=== PATIENT | male | born 1940 | race Caucasian/White ===

== ENCOUNTER 2016-12-13 10:14 | Day surgery (SDC) | payer MEDICARE ==
--- NOTE | 2016-12-13 09:38 | HP ---
DATE OF SURGERY: 12/13/2016 HISTORY OF PRESENT ILLNESS: The patient is a 76 year-old gentleman who recently underwent colonoscopy for change in bowel habits and lower abdominal pain. He was noted to have rectal cancer. He is need of Port-A-Cath for neoadjuvant treatment. PAST MEDICAL HISTORY: In addition to rectal cancer he has got chronic obstructive pulmonary disease. PAST SURGICAL HISTORY: Back surgery in the past. He had colonoscopy in the past. MEDICATIONS: Albuterol, aspirin. ALLERGIES: NKDA. FAMILY HISTORY: Negative for colon cancer. SOCIAL HISTORY: One pack per day smoker, denies alcohol abuse. REVIEW OF SYSTEMS: Twelve systems reviewed per admission assessment. No chest pain or palpitations other systems negative or noncontributory as above and per preadmission questionnaire. PHYSICAL EXAMINATION: GENERAL: No acute distress. HEENT: Sclerae nonicteric. NECK: No JVD. CHEST: Equal excursion, nonlabored breathing. CVS: Regular rate and rhythm. ABDOMEN: Soft. No peritoneal signs. EXTREMITIES: No significant edema. NEURO: Alert, moving extremities symmetrically. No gross motor deficits noted. IMPRESSION: Rectal cancer in need of neoadjuvant treatment. He has seen Dr. Majano and Dr. Vazquez. He is in need of Port-A-Cath placement for IV treatments for his rectal cancer prior to setting him up for resection. Risks and benefits explained in detail including but not limited to bleeding or infection, risk of hematoma or seroma formation, risk of port or catheter fracture or failure possibly requiring removal or replacement, risk of port infection possibly requiring removal, risk of pneumothorax or thrombosis, general risk of aches, pain, hematoma or seroma formation, general risk of anesthesia or sedation. He understands all the above but not limited to, will proceed with Port-A-Cath placement as an outpatient.
[~2016-12-13 10:14] MED LIST: CEFAZOLIN 2 GM-D5W BAG** 2 GM/50 ML ML IV ONE; CEFAZOLIN 2 GM-D5W BAG** 2 GM/50 ML ML IV SCH; Lactated Ringers 1,000 ML IV ONE; Lactated Ringers 1,000 ML IV SCH; Sensorcaine 0.25% 10 ML ONE; Sodium Chloride 0.9% 10 ML FLUSH Syringe IV PRN; XYLOCAINE 1% HCL 20 ML MDV ONE
[2016-12-13] MEDS ORDERED: Ketamine HCl 50 MG/ML IJ ONE (10:15)
[2016-12-13] MEDS ORDERED: DIPRIVAN 200 MG/20 ML IV ONE (10:15)
[2016-12-13 13:43] VITALS: BP 135/73
--- NOTE | 2016-12-13 13:50 | XRAY ---
Indication: Port placement. Intraoperative fluoroscopy was provided for 5 seconds. A single digital spot image submitted for interpretation demonstrates partially visualized left-sided Port-A-Cath. Correlate with intraoperative findings/report.
[2016-12-13 14:14] VITALS: PULSE 53; O2SAT 93
--- NOTE | 2016-12-14 08:45 | OP ---
SURGERY DATE/TIME: 12/13/2016 1237 PREOPERATIVE DIAGNOSIS: Rectal cancer in need of long term care pharmacist IV access for IV treatments for neoadjuvant therapy. POSTOPERATIVE DIAGNOSIS: Rectal cancer in need of [facility] IV access for IV treatments for neoadjuvant therapy. PROCEDURE: Tunnel Port-A-Cath placement with C-arm fluoroscopy left subclavian vein. SURGEON: Dr. Jayesh Carias. GOLD CHARMER: Dr. Lois Berrios. ANESTHESIA: MAC. ESTIMATED BLOOD LOSS: Minimal. INDICATIONS: As noted above. Risks and benefits explained in detail and not limited to and consent obtained. DESCRIPTION OF PROCEDURE AND FINDINGS: The patient is taken to the operating room. MAC anesthesia introduced., The neck and chest prepped and draped in usual sterile fashion. After official time out and no disagreement with planned procedure, 1% lidocaine was infiltrated. 18 gauge cannulation inserted. On first pass good dark nonpulsatile venous return. The guidewire passed without difficulty followed by dilator, followed by anesthetized tunnel track and port pocket area. Guidewire is confirmed down the superior vena cava on C-arm fluoroscopy this was followed by anesthetizing the tunnel track and port pocket. The catheter tunneled down from cannulation stab wound to port pocket area. The dilator break away sheath easily fed over the guidewire. Catheter fed down the breakaway sheath. The tip was pulled back in distal superior vena cava. Lung macdonald were noted to be up bilaterally. It was felt that no further x-rays were necessary. The catheter was cut to appropriate length, snapped on the port with the hub. The port aspirated dark nonpulsatile venous return with ease. Flushed with heparinized saline with ease. Good hemostasis noted. Subcu closed with 3-0 Vicryl, skin closed with 4-0 Vicryl, cannulation stab wound closed with 4-0 Vicryl, Steri-Strips and sterile dressings applied. 0.25% Marcaine local injected along the skin incision fascial defect at the beginning of the procedure. Again, the catheter tip is in good location in the distal superior vena cava. Lung macdonald noted to be up bilaterally. It was felt that no further x-rays were necessary. The patient tolerated the procedure well. Findings discussed with the family out in the waiting area.
== END 2016-12-13 14:20 | disposition home or self-care (01) ==
LOC: SDC 10:14
PROVIDERS: ATTEND Surgery
PROC: 05H633Z Insertion of Infusion Device into Left Subclavian Vein, Percutaneous Approach (ICD-10-PCS; principal; 2016-12-13)
DX: C20 Malignant neoplasm of rectum (principal)
CPT/HCPCS: 00532; 77001; 99100; C1788; J0690; J1642; J2704

== ENCOUNTER 2018-03-13 08:53 | Day surgery (SDC) | payer MEDICARE ==
[2018-03-13] MEDS ORDERED: DIPRIVAN 200 MG/20 ML IV ONE (08:54)
[2018-03-13] MEDS ORDERED: Ketamine HCl 50 MG/ML IJ ONE (08:54)
[2018-03-13] MEDS ORDERED: Lactated Ringers 1,000 ML IV SCH (09:00)
--- NOTE | 2018-03-13 09:05 | HP ---
DATE OF SURGERY: 03/13/2018 HISTORY OF PRESENT ILLNESS: The patient is a 77 year-old with no bloody stools, family history negative for colon cancer. He has a past history of rectal cancer in need of follow up colonoscopy. Some gas, aches or pain in the right lower quadrant at times. PAST MEDICAL HISTORY: Chronic obstructive pulmonary disease. PAST SURGICAL HISTORY: Laparoscopic assisted partial colectomy and reanastomosis in the past. MEDICATIONS: None on a regular basis. ALLERGIES: NKDA. FAMILY HISTORY: Cancer. SOCIAL HISTORY: One pack per day smoker. Denies alcohol abuse. REVIEW OF SYSTEMS: Twelve systems reviewed. Negative or noncontributory as above and per preadmission questionnaire. PHYSICAL EXAMINATION: GENERAL: No acute distress. HEENT: Sclerae nonicteric. NECK: No JVD. CHEST: Equal excursion, decreased breath sounds consistent with chronic obstructive pulmonary disease but no audible wheeze. CVS: Regular rate and rhythm. ABDOMEN: Soft. No peritoneal signs. EXTREMITIES: No significant edema. NEURO: Alert, oriented, moving extremities symmetrically. No gross motor deficits noted. RECTAL: Deferred timed to endoscopy exam. IMPRESSION: History of rectal cancer. He is in need of follow up colonoscopy. I feel the patient is a candidate. A year ago he had resection. I feel the patient is a candidate for colonoscopy. Risks and benefits explained in detail including but not limited to bleeding or infection, small risk of bowel injury or perforation possibly requiring open procedure, risk of missed or nondiagnosis or incomplete exam possibly requiring barium enema, other studies or procedures, general risk of anesthesia or sedation but not limited to. He understands and agrees to the planned procedure and will proceed with outpatient follow up screening colonoscopy.
[2018-03-13] MEDS ORDERED: Lactated Ringers 1,000 ML IV ONE (09:54)
[2018-03-13] MEDS: Sodium Chloride 0.9% 10 ML FLUSH Syringe PORT FLUSH PRN ×2 (10:14→11:56)
[2018-03-13 11:50] VITALS: PULSE 50
[2018-03-13 11:55] VITALS: BP 127/61; O2SAT 95
--- NOTE | 2018-03-13 15:52 | OP ---
SURGERY DATE/TIME: 03/13/2018 1035 PREOPERATIVE DIAGNOSIS: Rectal cancer in need of follow up colonoscopy. POSTOPERATIVE DIAGNOSES: 1) Limited bowel prep, adequate but limiting, small internal and external hemorrhoids. 2) Diverticulosis. 3) Patent anastomosis. No evidence of recurrence at anastomotic site. PROCEDURES: Colonoscopy to cecum. SURGEON: Dr. Jayesh Carias. ANESTHESIA: MAC. ESTIMATED BLOOD LOSS: Minimal. INDICATIONS: As noted above. Risks and benefits explained in detail but not limited to and consent obtained. DESCRIPTION OF PROCEDURE AND FINDINGS: The patient is taken to the endoscopy room. MAC anesthesia induced. After official time out and no disagreement with planned procedure, digital rectal exam did not reveal any rectal masses. He did have some small internal and external hemorrhoids. Video colonoscope inserted and passed up through the patent anastomotic site. No signs of any recurrence at this time. The scope was slowly and carefully navigated up through the left colon down the transverse colon around the ascending colon, cecum up to the very tip of the distal ileum which was grossly unremarkable. Appendiceal orifice and valve visualized. Prep overall was limited. There was some semi-solid liquidy stool and a few solid stool chunks too thick to go through the scope, overall adequate prep. I do not feel that there was any large polyps, masses or obstructing lesions that were missed but tiny or small lesions may not have been visualized. On slow careful withdrawal of the scope back through the anastomotic site, he had some diverticulosis. He had small internal and external hemorrhoids. The scope is withdrawn. The patient tolerated the procedure well. Finding discussed with the family out in the waiting area. Given his stool laden prep although there is no evidence of any large polyps, masses or obstructing lesions and the anastomotic site looked excellent it is felt that he likely would benefit from follow up colonoscopy in one year given his history of colorectal cancer.
== END 2018-03-13 12:05 | disposition home or self-care (01) ==
LOC: SDC 08:53
PROVIDERS: ATTEND Surgery
DX: Z85.048 Personal history of other malignant neoplasm of rectum, rectosigmoid junction, and anus (principal); K57.90 Diverticulosis of intestine, part unspecified, without perforation or abscess without bleeding; K64.4 Residual hemorrhoidal skin tags; K64.8 Other hemorrhoids
CPT/HCPCS: 93005; 94250; 99100; J1642; J2704

== ENCOUNTER 2020-01-21 10:13 | Day surgery (SDC) | payer MEDICARE ==
--- NOTE | 2019-12-31 08:21 | HP ---
DATE OF SURGERY: 12/31/2019 HISTORY OF PRESENT ILLNESS: The patient is a 79 year old in need of removal of port. He is not using it anymore. He desires removal and oncologist gave the okay. PAST MEDICAL HISTORY: Chronic obstructive pulmonary disease. Colon cancer in the past. Lung disease. Colorectal cancer. PAST SURGICAL HISTORY: Laparoscopic assisted partial colectomy and reanastomosis in the past. He had Port-A-Cath placed in the past. He had endoscopy in the past. MEDICATIONS: ProAir, Ventolin, acetaminophen. ALLERGIES: NKDA. FAMILY HISTORY: Cancer. SOCIAL HISTORY: One pack per day smoker. Denies alcohol abuse. REVIEW OF SYSTEMS: Fourteen systems reviewed. No chest pain or palpitations. Other systems negative or noncontributory as above and per preadmission questionnaire. PHYSICAL EXAMINATION: GENERAL: No acute distress. HEENT: Sclerae nonicteric. NECK: No JVD. CHEST: Equal excursion, decreased breath sounds bilaterally. CVS: Regular rate and rhythm. ABDOMEN: Soft. EXTREMITIES: No edema. NEURO: Alert, moving extremities grossly symmetrically. PSYCH: Appropriate mood and affect. IMPRESSION: The patient has history of colorectal cancer. No longer uses the port and desires removal. I feel he is a candidate. He prefers to have removal, will with proceed under IV sedation as an outpatient. General risk of bleeding or infection, risk of hematoma or seroma formation, remote risk that the catheter could be scarred in too much for removal and may just have to tie off the catheter and remove the port. He understands and agrees to the planned procedure, will proceed with outpatient removal of Port-A-Cath.
--- NOTE | 2020-01-21 08:07 | HP ---
DATE OF SURGERY: 01/21/2020 HISTORY OF PRESENT ILLNESS: The patient is a 79 year old who is done with his port, no longer using and desires removal at this time. He has prior history of laparoscopic-assisted low anterior resection for colon cancer. PAST MEDICAL HISTORY: Chronic obstructive pulmonary disease and on home O2. PAST SURGICAL HISTORY: Colon resection in the past. He had a port. He had endoscopy in the past. MEDICATIONS: None on a regular basis. He is on home O2. ALLERGIES: NKDA. FAMILY HISTORY: Cancer. SOCIAL HISTORY: One pack per day smoker. Denies alcohol abuse. REVIEW OF SYSTEMS: Fourteen systems reviewed. Negative or noncontributory as above and per preadmission questionnaire. PHYSICAL EXAMINATION: GENERAL: A chronically ill gentleman on home O2. HEENT: Sclerae nonicteric. NECK: No JVD. CHEST: Port site fine. Equal excursion, decreased breath sounds consistent with chronic obstructive pulmonary disease. CVS: Regular rate and rhythm. ABDOMEN: Soft, nondistended. EXTREMITIES: No cyanosis. NEURO: Alert, moving extremities symmetrically. IMPRESSION: History of colon cancer. No longer needing his port. I feel he is a candidate for removal. General risk of bleeding or infection, small risk of sedation, risk of hematoma or seroma formation, remote risk of the catheter being scarred in there and having to remove just the port itself and tying off the catheter. General risk of aches and pains but not limited to. Risk of infection possibly requiring packing, will proceed with Port-A-Cath removal under IV sedation as an outpatient.
[2020-01-21] MEDS ORDERED: SUBLIMAZE 100 MCG/2 ML IV ONE (10:14)
[2020-01-21] MEDS ORDERED: VERSED 5 MG/5 ML IV ONE (10:14)
[2020-01-21] MEDS ORDERED: Lactated Ringers 1,000 ML IV ONE (10:27)
[2020-01-21] MEDS ORDERED: XYLOCAINE 1% HCL 20 ML MDV ONE (10:27)
[2020-01-21] MEDS ORDERED: Lactated Ringers 1,000 ML IV SCH (10:30)
[2020-01-21 13:07] VITALS: PULSE 58
[2020-01-21 13:16] VITALS: O2SAT 95
[2020-01-21 13:35] VITALS: BP 131/67
--- NOTE | 2020-01-22 09:17 | OP ---
SURGERY DATE/TIME: 01/21/2020 1225 PREOPERATIVE DIAGNOSIS: Prior history of cancer, now done with chemotherapy and no desires his Port-A-Cath and desires for removal. POSTOPERATIVE DIAGNOSIS: Prior history of cancer, now done with chemotherapy and no desires his Port-A-Cath and desires for removal. PROCEDURES: 1) Removal of tunnel Port-A-Cath. 2) 15 minutes of surgery monitored and managed IV conscious sedation. SURGEON: Dr. Jayesh Carias. ANESTHESIA: IV conscious sedation, IV Fentanyl 50 mg, IV Versed 1 mg, 1% lidocaine. ESTIMATED BLOOD LOSS: Minimal. INDICATIONS: As noted above. Risks and benefits explained in detail and not limited to and consent obtained. DESCRIPTION OF PROCEDURE AND FINDINGS: The patient is taken to the operating room. Continuous pulse oximetry with blood pressure monitoring. He was incrementally sedated with IV Fentanyl and Versed, given a little bit additional Fentanyl. He remained hemodynamically stable. He is in more comfortable state. His chest is prepped and draped in usual sterile fashion. After official time out and no disagreement with planned procedure, 1% lidocaine local infiltrated in field pattern around the port itself. Dissection carried down through the skin. The two Prolene sutures carefully removed. The port is mobilized upwards. The catheter pulled free intact and passed off. Tunnel track closed with 3-0 Vicryl. Fibrous pocket closed with 3-0 Vicryl. Skin closed with 4-0 Vicryl. Steri-Strips and sterile dressing applied. The patient tolerated the procedure well. There were no immediate complications. Findings discussed with the family out in the waiting area.
== END 2020-01-21 13:35 | disposition home or self-care (01) ==
LOC: SDC 10:13
PROVIDERS: ATTEND Surgery
DX: Z45.2 Encounter for adjustment and management of vascular access device (principal); J44.9 Chronic obstructive pulmonary disease, unspecified; Z85.038 Personal history of other malignant neoplasm of large intestine; Z79.899 Other long term (current) drug therapy
CPT/HCPCS: J2250; J3010

== ENCOUNTER 2020-10-29 20:47 | Emergency (ER) | payer MEDICARE ==
[2020-10-29 20:58] LABS: A-aADO2 85; ABG HEMOGLOBIN 14.8; ABG POTASSIUM 4.1 (3.5-5.1); ABG SITE LEFT RADIAL; ALLEN TEST OK? YES; ARTERIAL BLD GAS O2 SATURATION 95.2 % (95-100); ARTERIAL BLOOD GAS BASE EXCESS 3.8 (-2.0-2.0); ARTERIAL BLOOD GAS FIO2 32 %; ARTERIAL BLOOD GAS PCO2 56 mmHg (35-45); ARTERIAL BLOOD GAS PO2 73 mmHg (75-100); ARTERIAL BLOOD GAS pH 7.35 (7.35-7.45); CARBOXYHEMOGLOBIN 3.6 % THgb (0.0-6.9); HCO3- 30.9 (22-28); HGB O2 SAT 90.7 g/dF (94-100); Methhemoglobin 1.1 % (1.4-1.5)
[2020-10-29] MEDS ORDERED: DUONEB 0.5-3 MG/3 ml Neb IH ONE (21:00)
--- NOTE | 2020-10-29 21:06 | ERPHSYRPT ---
- History of Present Illness Time Seen by Provider: 10/29/20 21:02 Source: patient, family Exam Limitations: clinical condition Physician History: This is a 80-year-old white male who continues to smoke even though he has end- stage COPD. He denies chest pain. He denies fever. He denies abdominal pain. He denies nausea vomiting diarrhea. He has had worsening shortness of breath over the last 2 days. Patient has been diagnosed with colorectal cancer. Patient wears home oxygen of 3 L of oxygen nasal cannula Timing/Duration: day(s) (2) Activities at Onset: none Severity of Dyspnea-Max: moderate Severity of Dyspnea-Current: moderate Possible Cause: frequent episodes, smoke exposure Modifying Factors: Improves With: activity, coughing, exertion Associated Symptoms: cough, No chest pain/discomfort Allergies/Adverse Reactions: adhesive tape Adverse Reaction (Severe, Verified 01/21/20 10:32) Blisters Home Medications: Albuterol 8 gm Mdi Hfa [Ventolin Hfa MDI] 2 puffs IH DAILY 03/07/18 [History] Acetaminophen 500 mg [Tylenol Extra Strength 500 mg] 1 tab PO Q4-6HPRN PRN 03/13/18 [History] Albuterol Sulfate [Proair Hfa] 8.5 gm IH Q6HPRN PRN 12/17/19 [History] Travel Risk - International Travel Have you traveled outside of the country in past 3 weeks: No - Coronavirus Screening Are you exhibiting any of the following symptoms?: Yes Symptoms: Shortness of Breath Close contact with a COVID-19 positive Pt in past 14-21 Days: No - Review of Systems Constitutional: No Symptoms, Night Sweats Eyes: No Symptoms Ears, Nose, & Throat: No Symptoms Respiratory: Cough, Dyspnea, Wheezing Cardiac: No Symptoms Abdominal/Gastrointestinal: No Symptoms Genitourinary Symptoms: No Symptoms Musculoskeletal: No Symptoms Skin: No Symptoms Neurological: No Symptoms Psychological: No Symptoms Endocrine: No Symptoms Hematologic/Lymphatic: No Symptoms Immunological/Allergic: No Symptoms All Other Systems: Reviewed and Negative - Past Medical History Pertinent Past Medical History: No Neurological History: No Pertinent History ENT History: No Pertinent History Cardiac History: No Pertinent History Respiratory History: Asthma, COPD Endocrine Medical History: No Pertinent History Musculoskeletal History: No Pertinent History GI Medical History: Colorectal Cancer History: No Pertinent History Psycho-Social History: No Pertinent History Male Reproductive Disorders: No Pertinent History - Past Surgical History Past Surgical History: Yes Neuro Surgical History: No Pertinent History Cardiac: No Pertinent History Respiratory: No Pertinent History Gastrointestinal: Colon Resection Genitourinary: No Pertinent History Musculoskeletal: Orthopedic Surgery Male Surgical History: No Pertinent History Other Surgical History: back surgery x 2 - Social History Smoking Status: Current every day smoker How long have you smoked: 60 Exposure to second hand smoke: Yes Drug Use: none - Nursing Vital Signs Nursing Vital Signs: Initial Vital Signs Temperature 97.2 F 10/29/20 21:01 Pulse Rate 102 H 10/29/20 21:01 Respiratory Rate 25 H 10/29/20 21:01 Blood Pressure 186/86 10/29/20 21:01 O2 Sat by Pulse Oximetry 84 L 10/29/20 21:01 Pain Scale Pain Intensity 0 - Physical Exam General Appearance: moderate distress, alert, anxiety Eye Exam: PERRL/EOMI, eyes nml inspection Ears, Nose, Throat Exam: hearing grossly normal, normal ENT inspection, normal pharynx Neck Exam: normal inspection, non-tender, supple, full range of motion Respiratory Exam: respiratory distress, airway intact, wheezing, No chest tenderness Cardiovascular/Chest Exam: normal heart sounds, regular rate/rhythm, normal peripheral pulses Abdominal/Gastrointestinal Exam: soft, normal bowel sounds, No tenderness Extremity Exam: non-tender, normal range of motion, normal inspection, normal capillary refill, no calf tenderness, no pedal edema, pelvis stable Neurologic Exam: alert, oriented x 3, cooperative, unemployment specialist II-XII nml as tested, normal mood/affect, nml cerebellar function, nml station & gait, sensation nml Skin Exam: normal color, warm, dry Lymphatic Exam: No adenopathy SpO2 Interpretation: hypoxic O2 Delivery: Nasal Cannula - Course Nursing assessment & vital signs reviewed: Yes EKG Interpreted by Me: RATE (89), Sinus Rhythm, Right [place] Deviation, NORMAL INTERVALS, NORMAL QRS, NORMAL ST-T, Other (No acute ischemic changes on this EKG. Patient extremely anxious and hyperventilating.) Ordered Tests: Active Orders 24 hr Category Date Time Status EKG-ER Only STAT Care 10/29/20 20:54 Active IV Insertion STAT Care 10/29/20 20:54 Active Pulse Oximetry (ED) STAT Care 10/29/20 20:54 Active CHEST 1 VIEW (PORTABLE) Stat Exams 10/29/20 20:55 Taken ABG [ARTERIAL BLOOD GASES] Stat Lab 10/29/20 20:55 Completed BLOOD CULTURE Stat Lab 10/29/20 21:20 Received CBC W DIFF Stat Lab 10/29/20 21:00 Completed CMP Stat Lab 10/29/20 21:00 Completed D-DIMER QUANTITATIVE Stat Lab 10/29/20 21:00 Completed Lactic Acid Stat Lab 10/29/20 21:24 Completed Manual Differential NC Stat Lab 10/29/20 21:00 Completed NT PRO BNP Stat Lab 10/29/20 21:00 Completed PROTIME WITH INR Stat Lab 10/29/20 21:00 Completed TROPONIN Q3H Lab 10/29/20 21:00 Completed TROPONIN Q3H Lab 10/30/20 00:00 Ordered TROPONIN Q3H Lab 10/30/20 03:00 Ordered TROPONIN Q3H Lab 10/30/20 06:00 Ordered TROPONIN Q3H Lab 10/30/20 09:00 Ordered Respiratory Therapy Assessment DAILY RT 10/29/20 21:45 Active Medication Summary Discontinued Medications Generic Name Dose Route Start Last Admin Trade Name Freq PRN Reason Stop Dose Admin Albuterol Sulfate Confirm 10/29/20 21:07 Proventil Solution 2.5 Mg/0.5 Ml Administered 10/29/20 21:08 Dose 2.5 mg IH .STK-MED ONE Albuterol Sulfate 2.5 mg 10/29/20 21:43 10/29/20 21:20 Proventil Solution 2.5 Mg/0.5 Ml IH 10/29/20 21:44 2.5 mg STAT ONE Administration Albuterol/Ipratropium Confirm 10/29/20 21:00 Duoneb 0.5-3 Mg/3 Ml Neb Administered 10/29/20 21:01 Dose 3 ml IH .STK-MED ONE Albuterol/Ipratropium 3 ml 10/29/20 21:43 10/29/20 21:10 Duoneb 0.5-3 Mg/3 Ml Neb IH 10/29/20 21:44 3 ml STAT ONE Administration Methylprednisolone Sodium 0 mg 10/29/20 20:54 10/29/20 21:52 Succinate 125 mg/ Sterile IV 10/29/20 20:55 2 mg Water 2 ml STAT ONE Administration Lorazepam 1 mg 10/29/20 21:12 10/29/20 21:25 Ativan 2 Mg/1 Ml Vial IV 10/29/20 21:13 1 mg STAT ONE Administration Lorazepam Confirm 10/29/20 21:22 Ativan 2 Mg/1 Ml Vial Administered 10/29/20 21:23 Dose 2 mg .ROUTE .STK-MED ONE Methylprednisolone Sodium Succinate Confirm 10/29/20 21:49 Solu-Medrol Administered 10/29/20 21:50 Dose 125 mg .ROUTE .STK-MED ONE Lab/Rad Data: Laboratory Result Diagrams 10/29/20 21:00 10/29/20 21:00 Laboratory Results 10/29/20 10/29/20 10/29/20 Range/Units 22:50 21:24 21:00 WBC (4.0-10.5) K/mm3 RBC (4.1-5.6) M/mm3 Hgb (12.5-18.0) gm/dl Hct (42-50) % MCV (78-100) fl MCH (26-32) pg MCHC (32-36) g/dl RDW (11.5-14.0) % Plt Count (150-450) K/mm3 MPV (7.5-11.0) fl PT (9.4-12.5) SECONDS INR (0.8-3.0) D-Dimer (215-500) ng/mL Puncture Site pCO2 (35-45) mmHg pO2 (75-100) mmHg Base Excess (-2.0-2.0) O2 Saturation (94-100) g/dF ABG pH (7.35-7.45) ABG HCO3 (22-28) ABG O2 Sat (Measured) (95-100) % Luiz Test A-a Gradient a/A Ratio Hemoglobin Carboxyhemoglobin (0.0-6.9) % THgb Methemoglobin (1.4-1.5) % Potassium (3.5-5.1) Temperature C POC O2 Flow Rate % Sodium (137-145) mmol/L Chloride (98-107) mmol/L Carbon Dioxide (22-30) mmol/L Anion Gap (5-15) MEQ/L BUN (9-20) mg/dL Creatinine (0.66-1.25) mg/dL Estimated GFR ML/MIN Glucose (74-106) mg/dL Lactic Acid 1.4 (0.4-2.0) Calcium (8.4-10.2) mg/dL Total Bilirubin (0.2-1.3) mg/dL AST (17-59) U/L ALT (0-50) U/L Alkaline Phosphatase (38-126) U/L Troponin I < 0.012 (0.000-0.034) ng/mL NT-Pro-B Natriuret Pep (0-1800) pg/mL Serum Total Protein (6.3-8.2) g/dL Albumin (3.5-5.0) g/dL SARS-CoV-2 (PCR) NEGATIVE (NEGATIVE) 10/29/20 10/29/20 10/29/20 Range/Units 21:00 21:00 21:00 WBC 16.7 H (4.0-10.5) K/mm3 RBC 4.58 (4.1-5.6) M/mm3 Hgb 14.8 (12.5-18.0) gm/dl Hct 44.4 (42-50) % MCV 96.9 (78-100) fl MCH 32.3 H (26-32) pg MCHC 33.3 (32-36) g/dl RDW 14.9 H (11.5-14.0) % Plt Count 297 (150-450) K/mm3 MPV 10.9 (7.5-11.0) fl PT 12.6 H (9.4-12.5) SECONDS INR 1.07 (0.8-3.0) D-Dimer 321 (215-500) ng/mL Puncture Site pCO2 (35-45) mmHg pO2 (75-100) mmHg Base Excess (-2.0-2.0) O2 Saturation (94-100) g/dF ABG pH (7.35-7.45) ABG HCO3 (22-28) ABG O2 Sat (Measured) (95-100) % Luiz Test A-a Gradient a/A Ratio Hemoglobin Carboxyhemoglobin (0.0-6.9) % THgb Methemoglobin (1.4-1.5) % Potassium 4.2 (3.5-5.1) Temperature C POC O2 Flow Rate % Sodium 138 (137-145) mmol/L Chloride 98 (98-107) mmol/L Carbon Dioxide 29 (22-30) mmol/L Anion Gap 15.6 H (5-15) MEQ/L BUN 24 H (9-20) mg/dL Creatinine 0.67 (0.66-1.25) mg/dL Estimated GFR > 60.0 ML/MIN Glucose 146 H (74-106) mg/dL Lactic Acid (0.4-2.0) Calcium 9.5 (8.4-10.2) mg/dL Total Bilirubin 0.60 (0.2-1.3) mg/dL AST 29 (17-59) U/L ALT 23 (0-50) U/L Alkaline Phosphatase 102 (38-126) U/L Troponin I (0.000-0.034) ng/mL NT-Pro-B Natriuret Pep 183 (0-1800) pg/mL Serum Total Protein 7.9 (6.3-8.2) g/dL Albumin 4.5 (3.5-5.0) g/dL SARS-CoV-2 (PCR) (NEGATIVE) 10/29/20 Range/Units 20:55 WBC (4.0-10.5) K/mm3 RBC (4.1-5.6) M/mm3 Hgb (12.5-18.0) gm/dl Hct (42-50) % MCV (78-100) fl MCH (26-32) pg MCHC (32-36) g/dl RDW (11.5-14.0) % Plt Count (150-450) K/mm3 MPV (7.5-11.0) fl PT (9.4-12.5) SECONDS INR (0.8-3.0) D-Dimer (215-500) ng/mL Puncture Site LEFT RADIAL pCO2 56 H (35-45) mmHg pO2 73 L (75-100) mmHg Base Excess 3.8 H (-2.0-2.0) O2 Saturation 90.7 L (94-100) g/dF ABG pH 7.35 (7.35-7.45) ABG HCO3 30.9 H* (22-28) ABG O2 Sat (Measured) 95.2 (95-100) % Luiz Test YES A-a Gradient 85 a/A Ratio 0.46 Hemoglobin 14.8 Carboxyhemoglobin 3.6 (0.0-6.9) % THgb Methemoglobin 1.1 L (1.4-1.5) % Potassium 4.1 (3.5-5.1) Temperature 37.0 C POC O2 Flow Rate 32 % Sodium (137-145) mmol/L Chloride (98-107) mmol/L Carbon Dioxide (22-30) mmol/L Anion Gap (5-15) MEQ/L BUN (9-20) mg/dL Creatinine (0.66-1.25) mg/dL Estimated GFR ML/MIN Glucose (74-106) mg/dL Lactic Acid (0.4-2.0) Calcium (8.4-10.2) mg/dL Total Bilirubin (0.2-1.3) mg/dL AST (17-59) U/L ALT (0-50) U/L Alkaline Phosphatase (38-126) U/L Troponin I (0.000-0.034) ng/mL NT-Pro-B Natriuret Pep (0-1800) pg/mL Serum Total Protein (6.3-8.2) g/dL Albumin (3.5-5.0) g/dL SARS-CoV-2 (PCR) (NEGATIVE) - Progress Progress: improved, re-examined Air Movement: fair Progress Note: 10/29/20 22:37 Chest x-ray shows bibasilar Covid-like patches/opacities 10/30/20 00:27 Medical decision making: Patient is doing very well at this time. Patient normally wears 3 L oxygen nasal cannula and is now on 2 L nasal cannula and the oxygen saturation is 97%. His heart rate is in the high 80s to low 90s. His troponin is within normal limits. His D-dimer is also within normal limits. He has no chest pain. He says he is ready to go home. He states that if he felt the way he feels now he would not have come to the hospital. Patient does have leukocytosis and we will treat him with Rocephin intravenously here and send him home with a prescription for albuterol nebulizer vials, prednisone and antibiotics. Blood Culture(s) Obtained: Yes Antibiotics given: No Counseled pt/family regarding: lab results, diagnosis, rad results - Departure Departure Disposition: Home Clinical Impression: COPD with acute exacerbation, Leukocytosis Condition: Stable Critical Care Time: No Referrals: RADHA ANDREWS [Primary Care Provider] - Instructions: Chronic Obstructive Pulmonary Disease Additional Instructions: Use your nebulizer treatments every 4 hours for the next 48 hours. Continue your inhalers as prescribed. Take your other medications as prescribed. Return to the emergency department if your symptoms worsen. Stop smoking Prescriptions: Cefdinir 300 mg PO BID 7 Days #14 capsule Prednisone 10 mg [Deltasone 10 mg] 10 mg PO TID #12 tablet Albuterol 2.5 mg/3 ml Neb [Proventil 2.5 mg/3 ml Neb] 2.5 mg IH Q6H #25 n eb
[2020-10-29] MEDS ORDERED: PROVENTIL Solution 2.5 MG/0.5 ML IH ONE (21:07)
[2020-10-29] MEDS: DUONEB 0.5-3 MG/3 ml Neb IH ONE (21:10)
[2020-10-29] MEDS: PROVENTIL Solution 2.5 MG/0.5 ML IH ONE (21:20)
[2020-10-29] MEDS ORDERED: Ativan 2 MG/1 ML VIAL ONE (21:22)
[2020-10-29] MEDS: Ativan 2 MG/1 ML VIAL IV ONE (21:25)
[2020-10-29 21:26] LABS: Hematocrit 44.4 % (42-50); Hemoglobin 14.8 gm/dl (12.5-18.0); Mean Cell Volume 96.9 fl (78-100); Mean Corpuscular Hemoglobin 32.3 pg (26-32); Mean Corpuscular Hgb Concent. 33.3 g/dl (32-36); Mean Platelet Volume 10.9 fl (7.5-11.0); Platelet Count 297 K/mm3 (150-450); Red Blood Count 4.58 M/mm3 (4.1-5.6); Red Cell Distribution Width 14.9 % (11.5-14.0); White Blood Count 16.7 K/mm3 (4.0-10.5)
[2020-10-29 21:44] LABS: INR 1.07 (0.8-3.0); PROTIME 12.6 SECONDS (9.4-12.5)
[2020-10-29] MEDS ORDERED: solu-MEDROL ONE (21:49)
[2020-10-29] MEDS: solu-MEDROL 125 MG, Sterile H2O 10 ml 2 ML IV ONE ×2 (21:52)
[2020-10-29 21:57] LABS: ALBUMIN 4.5 g/dL (3.5-5.0); ALKALINE PHOSPHATASE 102 U/L (38-126); ANION GAP 15.6 MEQ/L (5-15); BLOOD UREA NITROGEN 24 mg/dL (9-20); CHLORIDE 98 mmol/L (98-107); Calcium 9.5 mg/dL (8.4-10.2); Carbon Dioxide 29 mmol/L (22-30); Creatinine 1 0.67 mg/dL (0.66-1.25); EST GLOMERULAR FILTRATION RATE > 60.0 ML/MIN; Glucose 146 mg/dL (74-106); NT PRO BNP 183 pg/mL (0-1800); Potassium 4.2 mmol/L (3.5-5.1); SGOT/AST 29 U/L (17-59); SGPT/ALT 23 U/L (0-50); SODIUM 138 mmol/L (137-145); Total Protein 7.9 g/dL (6.3-8.2)
[2020-10-30] MEDS ORDERED: ROCEPHIN 1 Gm-D5w 50 ml Bag** 1 G/50 ML IVPB IV ONE (00:31)
[2020-10-30] MEDS: ROCEPHIN 1 Gm-D5w 50 ml Bag** 1 G/50 ML IVPB IV STA (00:32)
[2020-10-30 01:14] VITALS: BP 111/61; PULSE 87; O2SAT 97
[2020-10-30 01:22] LABS: Lymphocytes 7 % (24-44); Monocyte 3 % (0.0-12.0); Neutrophils 90 % (36.-66.); Platelet Estimate NORMAL (NORMAL); Total Cells Counted 100
--- NOTE | 2020-10-30 19:48 | XRAY ---
Exam: AP upright portable chest film from 10/29/2020. Comparison: None. Indication: Shortness of air. Findings: The transverse heart size appears within normal limits. There is marked hyperinflation of the lung macdonald with a suggestion of some bullous changes within both upper lobes consistent with advanced COPD. In addition, there appears to be some mild vascular and interstitial congestion within both lower lung macdonald, left greater than right. Subtle groundglass opacities within the left lung base cannot be excluded. There is an apparent 9 mm nodular density overlying the lateral right lung base in the projection of the posterior right 10th rib which could represent the patient's right nipple. A lung nodule is not completely excluded. No pneumothorax or significant pleural effusion is seen. There appears to be some old healed fracture deformities involving the right posterior seventh, eighth, ninth, and 10th ribs. I believe there is also an old healed left 11th posterior rib fracture deformity. Impression: 1. Marked emphysematous changes of the chest are seen, as discussed above. 2. There also appears to be some mild vascular and interstitial congestion at both lung bases, left greater than right. Subtle groundglass opacities at the left lung base are difficult to exclude. Consider follow-up. 3. 9 mm nodular density at lateral right lung base may relate to the patient's right nipple. A small lung nodule is not excluded with certainty. Consider a follow-up PA chest film with nipple markers in place. 4. Several old posterior right rib fracture deformities are seen. I believe there is also an old posterior lateral left 11th rib fracture deformity.
== END 2020-10-30 01:10 | disposition home or self-care (01) ==
LOC: ED 20:47
DX: J44.1 Chronic obstructive pulmonary disease with (acute) exacerbation (principal); D72.829 Elevated white blood cell count, unspecified; Z79.899 Other long term (current) drug therapy
CPT/HCPCS: 36000; 36415; 36600; 71045; 80053; 82375; 82803; 83605; 83880; 84484; 85025; 85379; 85610; 87040; 93005; 94640; 94760; 96374; 96375; 99284; U0003; J0696; J2060; J2930; A9270-GY